=== PATIENT | male | born 1970 | race Caucasian/White ===

== ENCOUNTER 2017-09-17 07:40 | Emergency (ER) | payer OTHER ==
[2017-09-17] MEDS: diphenhydrAMINE 50 MG/ML VIAL IVP (08:19)
[2017-09-17] MEDS: KETOROLAC 30 MG/ML INJ. IV (08:19)
[2017-09-17] MEDS: METOCLOPRAMIDE HCL 10 MG/2 ML VIAL. IV (08:19)
[2017-09-17] MEDS: IV NORMAL SALINE 1000ML BAG 1,000 ML IV (08:19)
[2017-09-17] MEDS: fentaNYL PF VIAL 100 MCG/2 ML VIAL IV (10:08)
== END 2017-09-17 11:05 | disposition home or self-care (01) ==
LOC: ER 07:40
DX: G43.909 Migraine, unspecified, not intractable, without status migrainosus (principal); E78.00 Pure hypercholesterolemia, unspecified; E07.9 Disorder of thyroid, unspecified; I10 Essential (primary) hypertension; M10.9 Gout, unspecified; Z98.890 Other specified postprocedural states
CPT/HCPCS: 70450; 96374; 96375; 99284-25; J1200; J1885; J2765; J3010; J7030

== ENCOUNTER → 2021-08-06 | Outpatient (CLI) | payer BC ==
[2017-09-17 10:30] VITALS: BP 126/76
[~2021-08-06] MED LIST: ONDA4TAB10 SL
--- NOTE | 2021-08-06 15:36 | KCIC ---
EXAMINATION: XR KNEE 3 VIEWS_RT CLINICAL HISTORY: Anterior right knee pain/swelling x1 week, no known injury. TECHNIQUE: XR KNEE 3 VIEWS_RT Number of Images/Views: 3 COMPARISON: None FINDINGS: Mild medial compartment narrowing. No acute fracture. Trace joint effusion. IMPRESSION: Minimal degenerative changes right knee medial compartment. Electronically signed by: Renard Muse DO (08/06/2021 3:34 PM) [id number]
== END ==
LOC: KCIC 11:32
PROVIDERS: ATTEND Family Medicine
DX: M17.11 Unilateral primary osteoarthritis, right knee (principal)
CPT/HCPCS: 73562